=== PATIENT | male | born 1985 | race Hispanic/Latino ===

== ENCOUNTER 2018-11-15 09:35 | Emergency (ER) | payer OTHER ==
[~2018-11-15] VITALS: Ht 170.2 cm; Wt 68.1 kg
[~2018-11-15 09:35] MED LIST: AMOXICILLIN500 MG PO; CIPROFLOXACN500 MG PO; NAPROSYN500 MG PO; NO HOME MEDS; ULTRAM50 MG PO
[2018-11-15] MEDS ORDERED: CYCLOBENZAPR5 MG PO (10:01)
[2018-11-15] MEDS ORDERED: MOTRIN400 MG PO (10:01)
[2018-11-15 10:12] VITALS: BP 132/55
== END 2018-11-15 10:17 | disposition home or self-care (01) ==
LOC: ED 09:35
DX: S39.012A Strain of muscle, fascia and tendon of lower back, initial encounter (principal); F17.210 Nicotine dependence, cigarettes, uncomplicated; X58.XXXA Exposure to other specified factors, initial encounter; M54.5 Low back pain

== ENCOUNTER 2020-07-26 21:02 | Emergency (ER) | payer MEDICAID ==
[~2020-07-26] VITALS: Ht 170.2 cm; Wt 84.5 kg
[~2020-07-26 21:02] MED LIST changes: +CYCLOBENZAPR5 MG PO; +MOTRIN400 MG PO
[2020-07-26 21:40] LABS: HEMOGLOBIN 15.5 g/dl (14.0-18.0); IMMATURE GRANULOCYTES 0.4 % (0.0-5.0); MEAN CORPUSCULAR HGB CONC 33.9 g/dL CAL (32.0-36.0); NEUT# 6.34 thou/uL (1.82-7.42); RED BLOOD COUNT 4.84 mill/uL (4.70-6.10); RED CELL DISTRI WIDTH 11.5 % (11.5-15.5)
[2020-07-26 21:41] LABS: HEMATOCRIT 45.7 % (39.0-50.0); MEAN CELL VOLUME 94.4 fL CALC (80.0-100.0)
[2020-07-26 21:42] LABS: URINE BILIRUBIN - DIPSTICK NEGATIVE (NEGATIVE); URINE BLOOD DIPSTICK NEGATIVE (NEGATIVE); URINE COLOR YELLOW; URINE GLUCOSE - DIPSTICK NEGATIVE (NEGATIVE); URINE KETONE NEGATIVE (NEGATIVE); URINE LEUK ESTERASE NEGATIVE (NEGATIVE); URINE NITRITE - DIPSTICK NEGATIVE (Negative); URINE PH 6.5 (4.5-8.0); URINE PROTEIN - DIPSTICK NEGATIVE (NEG-TRACE)
[2020-07-26 22:01] LABS: ALBUMIN 4.9 g/dL (3.2-5.0); ALKALINE PHOSPHATASE 98 u/l (38-126); AMYLASE 164 u/l (30-110); ANION GAP 15 (6-22 (CALC)); BILIRUBIN, TOTAL 0.6 mg/dL (0.0-1.4); BUN 16 mg/dL (9-20); BUN/CREATININE RATIO 17 (12-20 (CALC)); CARBON DIOXIDE 28 mmol/l (22-30); CHLORIDE 99 mmol/l (95-108); CREATININE 0.9 mg/dL (0.7-1.3); GFR > 60 ML/MIN (>=60 (CALC)); GFR FOR AFR.AMER. > 60 ML/MIN (>=60 (CALC)); LIPASE 204 u/l (23-300); POTASSIUM 4.2 mmol/l (3.5-5.1); SGOT/AST 129 u/l (17-59); SODIUM 138 mmol/l (137-146); TOTAL PROTEIN 8.4 g/dL (6.3-8.2)
[2020-07-26 22:02] LABS: D-DIMER 0.47 mg/L (0.19-0.60)
[2020-07-26 22:12] LABS: MYOGLOBIN 22 ng/mL (0 - 121)
[2020-07-26 22:21] LABS: ACT PARTIAL THROMBO TIME 25.9 SECONDS (20.0-32.5)
[2020-07-26] MEDS ORDERED: TORADOL PO (22:43)
[2020-07-26 22:50] VITALS: BP 121/68
== END 2020-07-26 22:58 | disposition home or self-care (01) | DRG 313 ==
LOC: ED 21:02
PROVIDERS: Family Medicine
DX: R07.89 Other chest pain (principal)

== ENCOUNTER 2021-01-12 22:36 | Emergency (ER) | payer SELFPAY ==
[~2021-01-12 22:36] MED LIST changes: +TORADOL PO
[2021-01-12] MEDS ORDERED: CITALOPRAM40 MG PO (23:47)
== END 2021-01-12 22:45 | disposition left against medical advice (07) | DRG 951 ==
LOC: ED 22:36 → LWOBS 22:45
DX: Z53.21 Procedure and treatment not carried out due to patient leaving prior to being seen by health care provider (principal)

== ENCOUNTER 2021-01-12 23:15 | Emergency (ER) | payer MEDICAID ==
[~2021-01-12] VITALS: Ht 170.2 cm; Wt 68.2 kg
[2021-01-12] MEDS ORDERED: CITALOPRAM40 MG PO (23:47)
[2021-01-13 00:40] VITALS: BP 130/74
== END 2021-01-13 00:40 | disposition home or self-care (01) ==
LOC: ED 23:15
DX: S61.512A Laceration without foreign body of left wrist, initial encounter (principal); F32.9 Major depressive disorder, single episode, unspecified; F17.210 Nicotine dependence, cigarettes, uncomplicated; W27.8XXA Contact with other nonpowered hand tool, initial encounter; Y93.89 Activity, other specified; Y92.008 Other place in unspecified non-institutional (private) residence as the place of occurrence of the external cause

== ENCOUNTER 2021-04-28 11:47 | Emergency (ER) | payer MEDICAID ==
[~2021-04-28] VITALS: Ht 170.2 cm; Wt 72.7 kg
[~2021-04-28 11:47] MED LIST changes: +CITALOPRAM40 MG PO
[2021-04-28 13:32] LABS: HEMATOCRIT 44.9 % (39.0-50.0); HEMOGLOBIN 15.4 g/dl (14.0-18.0); IMMATURE GRANULOCYTES 0.3 % (0.0-5.0); MEAN CELL VOLUME 93.3 fL CALC (80.0-100.0); MEAN CORPUSCULAR HGB CONC 34.3 g/dL CAL (32.0-36.0); NEUT# 7.51 thou/uL (1.82-7.42); RED BLOOD COUNT 4.81 mill/uL (4.70-6.10); RED CELL DISTRI WIDTH 11.3 % (11.5-15.5)
[2021-04-28 13:43] LABS: ALBUMIN 4.7 g/dL (3.2-5.0); ALKALINE PHOSPHATASE 68 u/l (38-126); BILIRUBIN, TOTAL 0.8 mg/dL (0.0-1.4); BUN 14 mg/dL (9-20); BUN/CREATININE RATIO 16 (12-20 (CALC)); CHLORIDE 95 mmol/l (95-108); CREATININE 0.9 mg/dL (0.7-1.3); GFR > 60 ML/MIN (>=60 (CALC)); GFR FOR AFR.AMER. > 60 ML/MIN (>=60 (CALC)); POTASSIUM 3.7 mmol/l (3.5-5.1); SODIUM 137 mmol/l (137-146); TOTAL PROTEIN 7.9 g/dL (6.3-8.2)
[2021-04-28 13:46] LABS: ANION GAP 12 (6-22 (CALC)); CARBON DIOXIDE 34 mmol/l (22-30); SGOT/AST 32 u/l (17-59)
[2021-04-28 14:29] VITALS: BP 128/70
== END 2021-04-28 14:40 | disposition home or self-care (01) ==
LOC: ED 11:47
PROVIDERS: Family Medicine
DX: R51.9 Headache, unspecified (principal); F32.9 Major depressive disorder, single episode, unspecified; F17.210 Nicotine dependence, cigarettes, uncomplicated